=== PATIENT | female | born 1990 | race Caucasian/White ===

== ENCOUNTER 2020-02-27 23:40 | Emergency (ER) | payer SELFPAY ==
[~2020-02-27] VITALS: Ht 167.6 cm; Wt 109.0 kg
[2020-02-28] MEDS ORDERED: NAPROXEN 250MG TABLET PO ONE (00:45)
[2020-02-28] MEDS ORDERED: LORAZEPAM 1MG TABLET PO ONE (00:45)
[2020-02-28 02:08] VITALS: BP 142/73
== END 2020-02-28 02:09 | disposition home or self-care (01) ==
LOC: ER 23:40
DX: F41.9 Anxiety disorder, unspecified (principal); M75.22 Bicipital tendinitis, left shoulder
CPT/HCPCS: 99283

== ENCOUNTER 2021-03-29 01:27 | Emergency (ER) | payer SELFPAY ==
[~2021-03-29] VITALS: Ht 167.6 cm; Wt 91.0 kg
[2021-03-29] MEDS ORDERED: MORPHINE SULFATE 4 MG/ML CPJ (NOT FOR IM USE) IV ONE (02:45)
[2021-03-29] MEDS ORDERED: ONDANSETRON HCL 4MG/2ML INJ IV ONE (02:45)
[2021-03-29 03:24] LABS: BASOPHILS % 0.5 % (0.0-2.0); EOSINOPHILS % 1.1 % (0.0-5.0); HEMATOCRIT. 42.7 % (36.0-48.0); HEMOGLOBIN. 14.9 g/dL (12.0-16.0); LYMPHOCYTES % 28.3 % (20.0-50.0); MEAN CORPUSCULAR HEMOGLOBIN 28.8 pg (28.0-32.0); MEAN CORPUSCULAR VOLUME 82.6 fL (81.0-99.0); MEAN PLATELET VOLUME 9.8 fl (7.4-10.4); MONOCYTES % 5.2 % (2.0-8.0); NEUTROPHILS % 64.9 % (40.0-76.0); PLATELET 233 x1000/uL (130-400); RED BLOOD CELL COUNT 5.17 mill/uL (4.2-5.4); RED CELL DISTRIBUTION WIDTH 12.6 % (11.6-14.6)
[2021-03-29 03:45] LABS: CHLORIDE 107 mEq/L (98-107)
[2021-03-29 03:53] LABS: HCG SCREEN NEGATIVE
[2021-03-29 04:23] LABS: CLARITY URINE CLEAR (CLEAR); COLOR URINE YELLOW (YELLOW); KETONES URINE TRACE (NEGATIVE); LEUKOCYTE ESTERASE URINE NEGATIVE (NEGATIVE); NITRITE URINE NEGATIVE (NEGATIVE); OCCULT BLOOD URINE NEGATIVE (NEGATIVE); PH URINE 6.5 (4.5-8.0); PROTEIN URINE NEGATIVE (NEGATIVE); SPECIFIC GRAVITY URINE 1.045 (1.005-1.030)
[2021-03-29] MEDS ORDERED: NAP5EC MT (06:28)
[2021-03-29 06:38] VITALS: BP 116/74
== END 2021-03-29 07:00 | disposition home or self-care (01) ==
LOC: ER 01:27
DX: N83.202 Unspecified ovarian cyst, left side (principal)
CPT/HCPCS: 36415; 76830; 76856; 80053; 81003; 81025; 84703; 85025; 96374; 96375; 99284; J2270; J2405